=== PATIENT | male | born 1980 | race Caucasian/White ===

== ENCOUNTER 2021-10-04 00:47 | Emergency (ER) | payer OTHER ==
[~2021-10-04] VITALS: Ht 165.1 cm; Wt 79.4 kg
[2021-10-04 01:00] VITALS: BP 128/74
--- NOTE | 2021-10-04 01:00 | NUR ---
41 Y/O MALE BIBS FROM HOME, WOUND RECHECK. OVER PAST FEW DAYS PT HAS NOTICED SEROSANGUINOUS FLUID DRAINING FROM SURGICAL WOUND IN ABDOMEN. NO INFLAMMATION, FEVER, PAIN. PT DENIES COUGH, N/V/D, OR BODY ACHES. A/OX4, GCS-15; UNLABORED BREATHING AND SPEAKING IN FULL SENTENCES; AMBULATORY W/O ASSISTANCE. HX: KIDNEY TUMOR NKA SX: PARTIAL NEPHRECTOMY
[2021-10-04 01:52] VITALS: BP 128/74
--- NOTE | 2021-10-04 01:52 | NUR ---
Patient discharged with v/s stable. Written and verbal after care instructions given and explained. Patient verbalized understanding. Ambulatory with steady gait. All questions addressed prior to discharge. Advised to follow up with PMD. VSS, A/OX4, UNLABORED BREATHING, AMBULATORY, AND CALM DEMEANOR
== END 2021-10-04 01:52 | disposition home or self-care (01) ==
LOC: MED 00:47
DX: K91.89 Other postprocedural complications and disorders of digestive system (principal)
CPT/HCPCS: 99281